=== PATIENT | female | born 1975 | race Caucasian/White ===

== ENCOUNTER 2016-08-25 18:11 | Emergency (ER) | payer MEDICAID ==
[~2016-08-25] VITALS: Ht 157.5 cm; Wt 64.4 kg
[2016-08-25 18:13] VITALS: BP 151/100
--- NOTE | 2016-08-25 19:13 | NUR ---
PT CAME TO ER W/ C/O ON AND OFF LOWER BACK PAIN GOING TO HER LEGS W/ NUMBNESS AND TINGLING SENSATION, FOR 2 WEEKS;PAIN SCALE OF 10/10;HX OF HTN AND KIDNEY DZ;DENIES CP/SOB/N/V/D;AAOX4;NO ACUTE DISTRESS NOTED AT THIS TIME;NEEDS ATTENDED;SAFETY MEASURES DONE;MONITORS IN PLACED;POSITIONED FOR COMFORT;
--- NOTE | 2016-08-25 19:19 | NUR ---
REPORT GIVEN TO THA Crook
--- NOTE | 2016-08-25 19:30 | NUR ---
REPORT RECEIVED FROM ABRAHAN ALMAZAN. ASSUMED PT CARE.
--- NOTE | 2016-08-25 19:30 | NUR ---
Patient being evaluated by physician at bedside.
[2016-08-25] MEDS ORDERED: KETOROLAC 60 MG/2 ML VIAL IM ONE (19:50)
[2016-08-25 21:45] VITALS: BP 147/87
--- NOTE | 2016-08-25 21:45 | NUR ---
Patient discharged with v/s stable. Written and verbal after care instructions given and explained BY DR HAGER Patient alert, oriented and verbalized understanding of instructions. Ambulatory with steady gait. All questions addressed prior to discharge. ID band removed. Patient advised to follow up with PMD. Rx of FLEXERIL AND MOTRIN given. Patient educated on indication of medication including possible reaction and side effects. Opportunity to ask questions provided and answered.
== END 2016-08-25 21:45 | disposition home or self-care (01) ==
LOC: MED 18:11
DX: M54.40 Lumbago with sciatica, unspecified side (principal); I10 Essential (primary) hypertension
CPT/HCPCS: 72100; 81002; 81025; 96372; 99284; J1885